=== PATIENT | male | born 1955 | race Caucasian/White ===

== ENCOUNTER 2018-02-03 12:09 | Observation (INO) | payer OTHER, MEDICARE ==
[~2018-02-03] VITALS: Ht 175.3 cm; Wt 109.8 kg
[~2018-02-03 12:09] MED LIST: AMITRIPTYLINE H25 M2 PO; ATORVASTATIN CA40 MG PO; HIGH BLOOD PRESSURE; HYDROCODON-ACE1 EAC7 PO; LEVEMIR SUBQ; LISINOPRIL10 MG PO; METFORMIN HCL500 MG PO; NORTRIPTYLINE H50 MG PO; NOVOLOG100 UNIT/1 SUBQ; [UNRECOGNIZED DRUG - OTHER]
[2018-02-03] MEDS ORDERED: MIGRAINE MEDICATION (12:16)
[2018-02-03] MEDS ORDERED: ONDANSETRON HCL4 M2 PO (12:18)
[2018-02-03 12:38] LABS: HEMATOCRIT 35.2 % (42.0-52.0); HEMOGLOBIN 11.9 gm/dL (14.0-18.0); MCH 33.2 pg (26.0-34.0); MCHC 33.8 g/dL (28.0-37.0); MCV 98.1 fL (80.0-100.0); MPV 7.9 fl. (7.2-11.1); NUCLEATED RBCS 0 /100WBC; PLATELET COUNT* 193 thou/uL (150-400); RBC 3.59 mil/uL (4.50-6.00); RDW-CV 13.8 % (10.5-14.5); WBC 8.1 thou/uL (4.0-11.0)
[2018-02-03 12:50] LABS: ANION GAP 7 mmol/L (7-16); BUN 23 mg/dL (7-18); CALCIUM 8.6 mg/dL (8.5-10.1); CHLORIDE 108 mmol/L (98-107); CO2 25 mmol/L (21-32); CREATININE 1.2 mg/dL (0.6-1.3); GLUCOSE 90 mg/dL (70-99); POTASSIUM 5.2 mmol/L (3.5-5.1); SODIUM 140 mmol/L (136-145)
[2018-02-03 12:55] LABS: ALBUMIN 2.5 g/dL (3.4-5.0); ALKALINE PHOSPHATASE 59 U/L (46-116); LIPASE 62 U/L (73-393); SGOT 20 U/L (15-37); SGPT 28 U/L (30-65); TOTAL BILIRUBIN 0.2 mg/dL (<0.1-1.0); TOTAL PROTEIN 6.2 g/dL (6.4-8.2); TROPONIN-I LEVEL <0.06 ng/mL (<0.06)
[2018-02-03 13:12] LABS: ABSOLUTE EOSINOPHILS 0.1 thou/uL (0.0-0.7); ABSOLUTE LYMPHOCYTES 0.9 thou/uL (0.8-5.3); ABSOLUTE MONOCYTES 0.4 thou/uL (0.0-1.2); ABSOLUTE NEUTROPHILS 6.7 thou/uL (1.6-8.1); ANISOCYTOSIS 1+; PLATELET ESTIMATE ADEQUATE; POIKILOCYTOSIS 1+
[2018-02-03] MEDS ORDERED: GLUCOPHAGE XR750 MG PO (14:58)
[2018-02-03] MEDS ORDERED: DEPAKOTE ER500 MG PO (15:00)
[2018-02-03] MEDS ORDERED: DEPAKOTE ER500 M1 PO (15:00)
[2018-02-03] MEDS ORDERED: TRULICITY0.75 MG/0. SUBQ (15:01)
[2018-02-03] MEDS ORDERED: MAGNESIUM400 MG PO (15:02)
[2018-02-03] MEDS ORDERED: LIPITOR 20 MG T20 M1 PO (15:02)
[2018-02-03] MEDS ORDERED: TRESIBA FL100 UNIT/1 SUBQ (15:02)
[2018-02-03] MEDS ORDERED: TRAZODONE HCL50 MG PO (15:03)
[2018-02-03] MEDS ORDERED: ZANTAC 150MG T150 MG PO (15:03)
[2018-02-03] MEDS ORDERED: JANUVIA100 MG PO (15:03)
[2018-02-03 16:05] VITALS: BP 105/66
--- NOTE | 2018-02-03 16:15 | EKG ---
[place] [address] ELECTROCARDIOGRAM REPORT Name: DENA LESTER Room: [address] IN [facility]#: [id number] Admission: 02/03/18 Attend Phys: Camilo Russo MD Discharge: Date of : 51 Report #: [id number] THIS REPORT FOR: //name// [facility] ED Test Date: 2018-02-03 Test Time: 12:48:00 Pat Name: DENA GIBSONAVER Department: Room: Gender: Tax Expert: NARAYAN : 1955 Requested By: Vanda Gaspar Order Number: [id number] MD: Jase Brennan Measurements Intervals [place] Rate: 84 P: 22 [place]: 162 QRS: 37 QRSD: 115 T: 191 QT: 325 QTc: 385 Interpretive Statements Sinus rhythm Incomplete right bundle branch block Nonspecific repol abnormality, lateral leads Baseline wander in lead(s) V4 Compared to ECG 04/25/2016 15:28:27 ST (T wave) deviation now present Sinus tachycardia no longer seen Electronically Signed On 02-03-2018 16:14:50 CDT by Jase Brennan [email or web address] <ELECTRONICALLY SIGNED> By: Jase Brennan MD, [facility] 02/03/18 1614 [id number] [id number] Jase Brennan MD, [facility] /EPI
[2018-02-03 16:20] VITALS: BP 105/69
[2018-02-03 20:00] VITALS: BP 128/77
[2018-02-03 20:42] LABS: URINE BILIRUBIN NEGATIVE (Negative); URINE BLOOD NEGATIVE (Negative); URINE CLARITY CLEAR; URINE COLOR YELLOW; URINE GLUCOSE-RANDOM NEGATIVE (Negative); URINE KETONES TRACE (Negative); URINE LEUKOCYTES-REFLEX NEGATIVE (Negative); URINE NITRITE-REFLEX NEGATIVE (Negative); URINE PROTEIN 3+ (Negative); URINE SPECIFIC GRAVITY >= 1.030 (1.005-1.030); URINE UROBILINOGEN 0.2 E.U./dl (0.2-1.0)
[2018-02-03 20:59] LABS: BACTERIA-REFLEX None Seen /HPF (None Seen); MUCUS 0-3 Light strn/LPF (None Seen); SQUAMOUS 0-3 Few /LPF (0-3); URINE RBC None Seen /HPF (0-2); URINE WBC-REFLEX 0-5 Rare /HPF (0-5)
[2018-02-03 21:00] LABS: CRYSTALS None Seen /LPF (None Seen); HYALINE CASTS 0-3 Few /LPF (None Seen)
[2018-02-04] VITALS: BP 103/65
[2018-02-04 04:00] VITALS: BP 119/68
[2018-02-04 05:26] LABS: ABSOLUTE EOSINOPHILS 0.4 thou/uL (0.0-0.7); ABSOLUTE LYMPHOCYTES 1.4 thou/uL (0.8-5.3); ABSOLUTE MONOCYTES 0.7 thou/uL (0.0-1.2); BASOPHILS 0.2 %; EOSINOPHILS 4.7 %; HEMATOCRIT 35.1 % (42.0-52.0); HEMOGLOBIN 11.7 gm/dL (14.0-18.0); LYMPHOCYTES 15.9 %; MCH 33.4 pg (26.0-34.0); MCHC 33.3 g/dL (28.0-37.0); MCV 100.5 fL (80.0-100.0); MONOCYTES 8.5 %; MPV 8.4 fl. (7.2-11.1); NUCLEATED RBCS 0 /100WBC; PLATELET COUNT* 153 thou/uL (150-400); POLYS 70.7 %; RBC 3.49 mil/uL (4.50-6.00); RDW-CV 14.1 % (10.5-14.5); WBC 8.5 thou/uL (4.0-11.0)
[2018-02-04 05:39] LABS: ANION GAP 7 mmol/L (7-16); BUN 20 mg/dL (7-18); CALCIUM 7.6 mg/dL (8.5-10.1); CHLORIDE 108 mmol/L (98-107); CO2 23 mmol/L (21-32); CREATININE 0.9 mg/dL (0.6-1.3); GLUCOSE 62 mg/dL (70-99); POTASSIUM 4.7 mmol/L (3.5-5.1); SODIUM 138 mmol/L (136-145); TROPONIN-I LEVEL <0.06 ng/mL (<0.06)
[2018-02-04 08:20] VITALS: BP 130/79
[2018-02-04 12:00] VITALS: BP 96/59
[2018-02-04] MEDS ORDERED: CEFDINIR300 MG PO (12:35)
[2018-02-04 12:40] VITALS: BP 96/59
== END 2018-02-04 12:58 | disposition home or self-care (01) ==
LOC: M.ERS 12:09 → M.2W 14:17 → M.TBA-ER 14:17 → M.2W 16:14
PROVIDERS: Physician Assistant; ADMIT Internal Medicine
DX: E86.0 Dehydration (principal); R11.2 Nausea with vomiting, unspecified; G43.909 Migraine, unspecified, not intractable, without status migrainosus; J18.9 Pneumonia, unspecified organism; F41.9 Anxiety disorder, unspecified; F32.9 Major depressive disorder, single episode, unspecified; E11.9 Type 2 diabetes mellitus without complications; I10 Essential (primary) hypertension; E78.00 Pure hypercholesterolemia, unspecified; Z98.890 Other specified postprocedural states; Z79.4 Long term (current) use of insulin; Z79.899 Other long term (current) drug therapy

== ENCOUNTER → 2019-05-11 | Outpatient (CLI) | payer BC, MEDICARE ==
[~2019-05-11] MED LIST changes: +CEFDINIR300 MG PO; +DEPAKOTE ER500 M1 PO; +DEPAKOTE ER500 MG PO; +GLUCOPHAGE XR750 MG PO; +JANUVIA100 MG PO; +LIPITOR 20 MG T20 M1 PO; +MAGNESIUM400 MG PO; +MIGRAINE MEDICATION; +ONDANSETRON HCL4 M2 PO; +TRAZODONE HCL50 MG PO; +TRESIBA FL100 UNIT/1 SUBQ; +TRULICITY0.75 MG/0. SUBQ; +ZANTAC 150MG T150 MG PO
== END ==
LOC: M.CT 13:00
DX: N20.0 Calculus of kidney (principal); K57.30 Diverticulosis of large intestine without perforation or abscess without bleeding; R31.9 Hematuria, unspecified